=== PATIENT | female | born 1985 | race Caucasian/White ===

== ENCOUNTER 2017-05-06 14:27 | Emergency (ER) | payer OTHER ==
[2017-05-06 14:30] VITALS: BP 137/79; PULSE 112; RESP 20; TEMP 99; O2SAT 98
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
[2017-05-06] MEDS ORDERED: SERT-129 PO (15:16)
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
[2017-05-06] MEDS ORDERED: METHOCARBAMOL 500 MG TAB PO ONE (15:30)
[2017-05-06] MEDS ORDERED: ROBA500T PO (15:37)
[2017-05-06] MEDS ORDERED: IBUP800T23 PO (15:37)
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
== END 2017-05-06 16:38 | disposition home or self-care (01) ==
LOC: NEPK 14:27
DX: S16.1XXA Strain of muscle, fascia and tendon at neck level, initial encounter (principal); S80.02XA Contusion of left knee, initial encounter; V49.49XA Driver injured in collision with other motor vehicles in traffic accident, initial encounter; Y92.410 Unspecified street and highway as the place of occurrence of the external cause
CPT/HCPCS: 73564; 99283; L0150